=== PATIENT | female | born 1970 ===

== ENCOUNTER 2018-12-30 09:40 | Outpatient (CLI) | payer OTHER ==
[~2018-12-30 09:40] MED LIST: CATAFLAM50 MG PO; CLOBETASOL 0.0515 GM TP; MEDROL4 MG PO
== END 2018-12-30 09:57 | disposition home or self-care (01) ==
LOC: LAB 09:40
DX: L40.8 Other psoriasis (principal); E55.9 Vitamin D deficiency, unspecified; E78.2 Mixed hyperlipidemia; E03.8 Other specified hypothyroidism; Z12.11 Encounter for screening for malignant neoplasm of colon; Z13.1 Encounter for screening for diabetes mellitus

== ENCOUNTER → 2019-01-02 | Outpatient (CLI) | payer OTHER | END | disposition home or self-care (01) | LOC: LAB 14:34 | DX: L40.8 Other psoriasis (principal); E55.9 Vitamin D deficiency, unspecified; E78.2 Mixed hyperlipidemia; E03.8 Other specified hypothyroidism; Z12.11 Encounter for screening for malignant neoplasm of colon; Z13.1 Encounter for screening for diabetes mellitus ==

== ENCOUNTER 2019-02-19 09:54 | Outpatient (CLI) | payer OTHER | END 2019-02-19 10:19 | disposition home or self-care (01) | LOC: RAD 09:54 | DX: M54.2 Cervicalgia (principal); M25.511 Pain in right shoulder ==